=== PATIENT | female | born 1970 | race Hispanic/Latino ===

== ENCOUNTER 2020-01-29 12:46 | Emergency (ER) | payer BC, OTHER, SELFPAY ==
--- NOTE | 2020-01-29 15:39 | EDPHYS ---
Physician Documentation [facility] Name: Cindy Moses Age: 49 yrs Sex: Female : 1970 Arrival Date: 01/29/2020 Time: 12:48 Bed 11 Private MD: Shawn Napoles ED Physician Chris Oshea HPI: 01/28 15:55 This 49 yrs old Female presents to ER via Ambulatory with complaints of Cough, snw Throat Pain. 15:55 The patient or guardian reports cough, flu symptoms, low-grade fever, myalgias, no snw appetite. Onset: The symptoms/episode began/occurred suddenly, 1 week(s) ago, and became persistent. Severity of symptoms: At their worst the symptoms were moderate, in the emergency department the symptoms have improved. Associated signs and symptoms: Pertinent positives: rhinorrhea, sore throat. The patient has not experienced similar symptoms in the past. It is unknown whether or not the patient has recently seen a physician. had CoVid testing in [place] 10 days ago but has not gotten results. Historical: - Allergies: 13:02 Aspirin; ss - Immunization history:: Adult Immunizations up to date. - Social history:: Smoking status: Patient/guardian denies using tobacco, but has a distant history of tobacco abuse. ROS: 15:54 Constitutional: Negative for fever, chills, and weight loss, Eyes: Negative for injury, snw pain, redness, and discharge, ENT: Negative for injury, pain, and discharge, Neck: Negative for injury, pain, and swelling, Cardiovascular: Negative for chest pain, palpitations, and edema. 15:54 Abdomen/GI: Negative for abdominal pain, nausea, vomiting, diarrhea, and constipation, Back: Negative for injury and pain, : Negative for injury, bleeding, discharge, and swelling, MS/Extremity: Negative for injury and deformity, Skin: Negative for injury, rash, and discoloration, Neuro: Negative for headache, weakness, numbness, tingling, and seizure, Psych: Negative for depression, anxiety, suicide ideation, homicidal ideation, and hallucinations. 15:54 Respiratory: Positive for cough, with no reported sputum, pleurisy, of the chest. Exam: 15:54 Constitutional: This is a well developed, well nourished patient who is awake, alert, snw and in no acute distress. Head/Face: Normocephalic, atraumatic. Eyes: Pupils equal round and reactive to light, extra-ocular motions intact. Lids and lashes normal. Conjunctiva and sclera are non-icteric and not injected. Cornea within normal limits. Periorbital areas with no swelling, redness, or edema. ENT: Nares patent. No nasal discharge, no septal abnormalities noted. Tympanic membranes are normal and external auditory canals are clear. Oropharynx with no redness, swelling, or masses, exudates, or evidence of obstruction, uvula midline. Mucous membranes moist. Neck: Trachea midline, no thyromegaly or masses palpated, and no cervical lymphadenopathy. Supple, full range of motion without nuchal rigidity, or vertebral point tenderness. No Meningismus. Chest/axilla: Normal chest wall appearance and motion. Nontender with no deformity. No lesions are appreciated. Cardiovascular: Regular rate and rhythm with a normal S1 and S2. No gallops, murmurs, or rubs. Normal PMI, no JVD. No pulse deficits. Respiratory: Lungs have equal breath sounds bilaterally, clear to auscultation and percussion. No rales, rhonchi or wheezes noted. No increased work of breathing, no retractions or nasal flaring. Abdomen/GI: Soft, non-tender, with normal bowel sounds. No distension or tympany. No guarding or rebound. No evidence of tenderness throughout. Back: No spinal tenderness. No costovertebral tenderness. Full range of motion. Skin: Warm, dry with normal turgor. Normal color with no rashes, no lesions, and no evidence of cellulitis. MS/ Extremity: Pulses equal, no cyanosis. Neurovascular intact. Full, normal range of motion. Neuro: Awake and alert, GCS 15, oriented to person, place, time, and situation. Cranial nerves II-XII grossly intact. Motor strength 5/5 in all extremities. Sensory grossly intact. Cerebellar exam normal. Normal gait. Psych: Awake, alert, with orientation to person, place and time. Behavior, mood, and affect are within normal limits. Vital Signs: 13:00 BP 148 / 92; Pulse 103; Resp 17; Temp 98.8(TE); Pulse Ox 98% on R/A; Weight 91.63 kg; ss Height 5 ft. 0 in. (152.40 cm); Pain 0/10; 13:00 Body Mass Index 39.45 (91.63 kg, 152.40 cm) ss MDM: 15:22 Patient medically screened. snw 15:53 Data reviewed: vital signs, nurses notes. Data interpreted: Pulse oximetry: on room air snw is 98 %. Interpretation: normal. Counseling: I had a detailed discussion with the patient and/or guardian regarding: the historical points, exam findings, and any diagnostic results supporting the discharge/admit diagnosis, the presence of at least one elevated blood pressure reading (>120/80) during this emergency department visit, the need for outpatient follow up, to return to the emergency department if symptoms worsen or persist or if there are any questions or concerns that arise at home. Special discussion: I have referred the patient to see his PCP for further evaluation of high blood pressure. Based on the history and exam findings, there is no indication for further emergent testing or inpatient evaluation. I discussed with the patient/guardian the need to see the primary care provider for further evaluation of the symptoms. 16:00 ED course: pt has been taking her Son's steroids 10mg x 2 days. snw 01/28 15:23 Order name: POPPY-Jane snw Administered Medications: No medications were administered Disposition: 17:56 Co-signature as Attending Physician, Chris Oshea MD I agree with the assessment and kdr plan of care. Disposition: 01/29/20 15:39 Discharged to Home. Impression: Bronchitis, not specified as acute or chronic, Pleurisy. - Condition is Stable. - Discharge Instructions: Acute Bronchitis, Adult, Acetaminophen Dosage Chart, Pediatric, Pleurisy, Cough, Adult. - Prescriptions for Prednisone 20 mg Oral Tablet - take 1 tablet by ORAL route 2 times per day for 3 days; 6 tablet. - Work release form, Medication Reconciliation Form, Thank You Letter, Antibiotic Education, Prescription Opioid Use form. - Follow up: Emergency Department; When: As needed; Reason: Worsening of condition. Follow up: Shawn Napoles MD; When: 1 week; Reason: Recheck today's complaints, Continuance of care, Re-evaluation by your physician. Signatures: Dispatcher [employer] EDPA Chris Oshea MD MD kdr Waters, Shelly, SAND DIGGER-C SAND DIGGER-Csnw Tamie Moya, BRITTNI RN Oma Bermudez RN RN Corrections: (The following items were deleted from the chart) 16:02 15:39 01/29/2020 15:39 Discharged to Home. Impression: Bronchitis, not specified as hb acute or chronic; Pleurisy. Condition is Stable. Forms are Medication Reconciliation Form, Thank You Letter, Antibiotic Education, Prescription Opioid Use. Follow up: Emergency Department; When: As needed; Reason: Worsening of condition. Follow up: Shawn Napoles; When: 1 week; Reason: Recheck today's complaints, Continuance of care, Re-evaluation by your physician. snw
--- NOTE | 2020-01-29 15:39 | ER ---
Nurse's Notes [facility] Name: Cindy Moses Age: 49 yrs Sex: Female : 1970 Arrival Date: 01/29/2020 Time: 12:48 Bed 11 Private MD: Shawn Napoles Diagnosis: Bronchitis, not specified as acute or chronic;Pleurisy Presentation: 01/28 13:00 Chief complaint: Patient states: shortness of breath, cough, fever and pain in throat ss when coughing x 7 days. Pt reports she is no longer having a fever. Was swabbed for COVID 19 10 days ago and still awaiting results. Coronavirus screen: Patient reports a cough. Patient reports shortness of breath or difficulty breathing. Patient denies measured and/or subjective temperature greater than 100.4F prior to today's visit. Patient denies travel on a cruise ship or to a country the [facility] currently lists as an affected area. Patient denies contact with known and/or suspected case of COVID-19. Ebola Screen: Patient denies exposure to infectious person. Patient denies travel to an Ebola-affected area in the 21 days before illness onset. Initial Sepsis Screen: Does the patient meet any 2 criteria? HR > 90 bpm. Does the patient have a suspected source of infection? No. Patient's initial sepsis screen is negative. Risk Assessment: Do you want to hurt yourself or someone else? Patient reports no desire to harm self or others. Onset of symptoms was January 22, 2020. 13:00 Method Of Arrival: Ambulatory ss 13:00 Acuity: KRYSTINA 3 ss Historical: - Allergies: 13:02 Aspirin; ss - Immunization history:: Adult Immunizations up to date. - Social history:: Smoking status: Patient/guardian denies using tobacco, but has a distant history of tobacco abuse. Screenin:27 Abuse screen: Denies threats or abuse. Denies injuries from another. Nutritional ss screening: No deficits noted. Tuberculosis screening: Never had TB. Fall Risk None identified. Assessment: 14:30 General: Appears in no apparent distress. uncomfortable, Behavior is calm, cooperative. ss General: Reports fever for but has not had a fever in a few days. . Pain: Complains of pain in throat Pain currently is 0 out of 10 on a pain scale. Neuro: Level of Consciousness is awake, alert, obeys commands. Cardiovascular: Capillary refill < 3 seconds is brisk in bilateral fingers. Respiratory: Airway is patent Respiratory effort is even, unlabored, Respiratory pattern is regular, symmetrical. Respiratory: Reports cough that is. GI: Patient currently denies diarrhea, nausea, vomiting. EENT: Nares are clear Oral mucosa is moist. Derm: Skin is intact, is healthy with good turgor, Skin is pink, warm \T\ dry. normal. Musculoskeletal: Range of motion: intact in all extremities. 15:27 Reassessment: Patient appears in no apparent distress at this time. Patient and/or ss family updated on plan of care and expected duration. Pain level reassessed. Patient is alert, oriented x 3, equal unlabored respirations, skin warm/dry/pink. Vital Signs: 13:00 BP 148 / 92; Pulse 103; Resp 17; Temp 98.8(TE); Pulse Ox 98% on R/A; Weight 91.63 kg; ss Height 5 ft. 0 in. (152.40 cm); Pain 0/10; 13:00 Body Mass Index 39.45 (91.63 kg, 152.40 cm) ED Course: 12:48 Patient arrived in ED. ag5 12:48 Shawn Napoles MD is Private Physician. [facility] 13:02 Triage completed. ss 13:02 Arm band placed on right wrist. ss 14:49 Lashaun Velazquez FNP-C is [facility]. snw 14:49 Chris Oshea MD is Attending Physician. snw 15:27 Tamie Moya, BRITTNI is Primary Nurse. ss 15:27 Patient has correct armband on for positive identification. Bed in low position. Call ss light in reach. 15:27 No provider procedures requiring assistance completed. Patient did not have IV access ss during this emergency room visit. 15:36 Shawn Napoles MD is Referral Physician. snw Administered Medications: No medications were administered Outcome: 15:39 Discharge ordered by . snw 16:02 Discharged to home ambulatory. hb 16:02 Condition: good 16:02 Discharge instructions given to patient, Instructed on discharge instructions, follow up and referral plans. medication usage, Demonstrated understanding of instructions, follow-up care, medications, Prescriptions given X 1. 16:02 Patient left the ED. hb Addendum: 01/31/2020 17:54 Addendum: COVID-19 Result: Positive result giiven to ED physician to notify pt. s s Physician was able to contact pt and pt was notified of positive COVID-19 swab result. Physician answered pt questions. Other: notified by Dr. Oshea. Signatures: Lashaun Velazquez, RISK TECH-C RISK TECH-Csnw Tamie Moya RN RN Oma Bermudez RN RN Isael Webster [facility]
[2020-01-29 16:09] VITALS: BP 148/92; TEMP 98.8; O2SAT 98
== END 2020-01-29 16:02 | disposition home or self-care (01) ==
LOC: ER 12:46
DX: U07.1 COVID-19 (principal); J40 Bronchitis, not specified as acute or chronic; R09.1 Pleurisy; Z88.6 Allergy status to analgesic agent
CPT/HCPCS: 99282; U0001